=== PATIENT | female | born 1975 | race Caucasian/White ===

== ENCOUNTER → 2016-11-06 | Outpatient (CLI) | payer OTHER ==
--- NOTE | 2016-11-06 11:18 | MA ---
Screening Digital Mammogram With Tomosynthesis and iCAD Indication: Routine screening. Mother diagnosed with breast cancer in her mid 50s. Technique: Standard digital CC projections were obtained. Digital breast tomosynthesis was performed in the MLO projection with reconstruction at 1.0 mm slice thickness. Composite MLO views were recons tructed. This examination was processed by the iCAD computer-aided detection system. Comparison: October 2015. Breast density: Type C. Findings: CAD was reviewed. No suspicious microcalcifications, mass, or architectural distortion. Impression: Negative mammogram. BI-RADS 1. Recommendation: Routine screening is recommended in one year, as long as physical examination is heidi ign in this patient with moderately dense breast parenchyma. Negative mammography should not preclude additional workup of a clinically suspicious finding. The patient's information is entered into a reminder system with a target due date for her next mammo gram. [facility] will send a result letter to the patient.
== END ==
LOC: FIMAGING 09:45
DX: Z12.31 Encounter for screening mammogram for malignant neoplasm of breast (principal); Z80.3 Family history of malignant neoplasm of breast
CPT/HCPCS: G0202

== ENCOUNTER → 2018-12-07 | Outpatient (CLI) | payer BC | LOC: FIMAGING 11:58 | PROVIDERS: ATTEND Obstetrics & Gynecology | DX: Z12.31 Encounter for screening mammogram for malignant neoplasm of breast (principal) ==

== ENCOUNTER → 2018-12-23 | Outpatient (CLI) | payer BC | LOC: FIMAGING 13:30 | PROVIDERS: ATTEND Hospitalist | DX: Z03.89 Encounter for observation for other suspected diseases and conditions ruled out (principal) | CPT/HCPCS: CPT4PN ==